=== PATIENT | female | born 1990 | race Caucasian/White ===

== ENCOUNTER 2016-11-30 02:30 | Emergency (ER) | payer MEDICAID ==
--- NOTE | ~2016-11-30 | ER ---
[facility] AGE: 26 Y [address] ROOM: [place] [address] LOCATION: [facility] ADMIT DATE: 11/30/2016 ER/Outpatient Report DISCHARGE DATE: 11/30/2016 FAMILY PHYSICIAN: Collin Cordova MD ATTENDING PHYSICIAN: Omer Martin CHIEF COMPLAINT: Possible overdose on sertraline. HISTORY OF PRESENT ILLNESS: The patient states that between 11 and midnight last night, she took 4 or 5 sertraline tablets 50 mg to try to help her sleep. She denies any thoughts of suicidal ideation or any such issues. She did have some vomiting and then decided to come in. She denies any headache, vision changes, fevers, chills, shaking, or any other issues. PAST MEDICAL HISTORY: Documented on the record and reviewed by me. SOCIAL HISTORY: Documented on the record and reviewed by me. MEDICATIONS: Documented on the record and reviewed by me. ALLERGIES: DOCUMENTED ON THE RECORD AND REVIEWED BY ME. REVIEW OF SYSTEMS: All systems were reviewed and negative except as noted in the HPI. PHYSICAL EXAMINATION: VITAL SIGNS: Blood pressure 141/73, pulse 73, respiratory rate 16, temperature 96.8, and SpO2 is 100% on room air. Pain 0/10. GENERAL: Age-appropriate female, in no obvious pain or distress, lying on the exam table. NEUROLOGIC: Awake and alert. GCS is 15. No obvious asymmetry. No clonus appreciated on exam. HEENT: Normocephalic, atraumatic. The eyes are PERRL. Pupils are dilated. NECK: Supple. Trachea is midline. Oropharynx is clear. CHEST: Heart has a regular rate and rhythm with no murmurs. Lungs are clear to auscultation bilaterally with no rhonchi, wheezes, or rales. ABDOMEN: Soft, nontender, and nondistended. No rebound or guarding. EXTREMITIES: Warm and well perfused. BACK: Nontender to palpation throughout. No CVA tenderness. PATIENT'S NAME: DARY MEEK [facility] AGE: 26 Y [address] ROOM: [place] [address] LOCATION: ED ADMIT DATE: 11/30/2016 ER/Outpatient Report DISCHARGE DATE: 11/30/2016 FAMILY PHYSICIAN: Collin Cordova MD ATTENDING PHYSICIAN: Omer Martin SKIN: Warm, dry, and intact. Not flushed. Not damp. LABS AND X-RAYS: No imaging was obtained. EKG: Sinus rhythm, rate of 70, with QTc of 424. Otherwise, normal intervals and axis. No ischemia. No comparison available. Urine drug screen is positive for amphetamines and benzodiazepines. Acetaminophen and salicylates are below threshold, as is serum HCG. CMS is unremarkable other than an elevated glucose. Serum alcohol is below detectable threshold. WBCs are 9.4, hemoglobin is 14.2, and platelets of 320. IMPRESSION: Intentional, nonsuicidal overdose on sertraline; resolved. EMERGENCY DEPARTMENT COURSE: The patient was seen and evaluated. Labs and EKG as noted above. No significant abnormalities appreciated. Discussed with Poison Control. She was observed until 6 hours after ingestion and had no worsening of her condition and in fact continued to improve. She was discharged home in good condition. She is instructed to not take sertraline to help her sleep and only take her recommended daily dose. All questions were answered, and the patient was discharged. MD PILI CUMMINGS/jacobol /[id number] d: 11/30/16 1907 t: 12/11/16 0834, OUTPATIENT REPORT
[~2016-11-30 02:30] MED LIST: MOTRIN800 MG PO; PERCOCET 5-3251 EACH PO; PRENATAL 1+1)(P1 TAB PO; SURFAK240 MG PO; ZANTAC150 MG
[2016-11-30 02:57] LABS: BASOPHIL % 0.4 %; EOSINOPHIL # 0.2 K/uL (0.0-0.5); EOSINOPHIL % 1.7 %; HEMOGLOBIN 14.2 g/dL (11.0-15.0); IMMATURE GRANULOCYTE % 0.2 %; LYMPHOCYTE # 2.9 K/uL (0.8-4.0); LYMPHOCYTE % 30.6 %; MCV 85.6 fl (83.0-98.0); MONOCYTE # 0.8 K/uL (0.0-1.0); MPV 10.6 fl (9.4-12.4); NEUTROPHIL # (ANC) 5.6 K/uL (1.8-7.8); NEUTROPHIL % 59.1 %; NRBC % 0 /100WBC (0-0.00); RDW-CV 12.7 % (11.9-14.6); WBC 9.4 K/uL (4.0-11.0)
[2016-11-30 02:59] LABS: HEMATOCRIT 42.8 % (33.0-46.0); MCH 28.4 pg (27.0-34.0); MCHC 33.2 gm/dL (32.0-36.5); PLATELET COUNT 320 K/uL (150-450)
[2016-11-30 03:15] LABS: BARBITURATE NEGATIVE (NEGATIVE)
[2016-11-30 03:15] LABS: ALBUMIN 4.2 gm/dL (3.5-5.0); ALK PHOS 99 IU/L (33-138); ALT 36 IU/L (12-78); AST 22 IU/L (10-40); BLOOD UREA NITROGEN 13 mg/dL (6-24); CALCIUM 9.3 mg/dL (8.5-10.5); CHLORIDE 107 mMol/L (96-110); CO2 22 mMol/L (22-32); CREATININE 0.7 mg/dL (0.5-1.1); ESTIMATED GFR (MDRD EQUATION) > 60; SODIUM 140 mMol/L (135-145)
[2016-11-30 03:25] LABS: TOTAL BILIRUBIN 0.5 mg/dL (0.0-1.5)
[2016-11-30 03:27] LABS: COCAINE NEGATIVE (NEGATIVE)
[2016-11-30 03:31] LABS: AMPHETAMINE POSITIVE (NEGATIVE); OPIATES NEGATIVE (NEGATIVE)
== END 2016-11-30 06:16 | disposition disaster alternative care site (69) ==
LOC: GMED 02:30
PROVIDERS: Emergency Medicine
DX: T43.222A Poisoning by selective serotonin reuptake inhibitors, intentional self-harm, initial encounter (principal); Z79.899 Other long term (current) drug therapy; Y99.8 Other external cause status
CPT/HCPCS: G0480; J7030